=== PATIENT | female | born 1995 | race Caucasian/White ===

== ENCOUNTER → 2018-04-21 | Day surgery (SDC) | payer BC ==
[2018-04-20 13:00] VITALS: BMI 25.7
[~2018-04-21] MED LIST: Albuterol Sulfate HFA (OR ONLY) ONE; Dexamethasone 20 MG/5 ML VIAL ONE; Fentanyl 100 MCG/2 ML VIAL ONE; Ferric Subsulfate 8 ML BOT ONE; Hydrocodone-Acetamin 15 ML UDCUP ONE; Lidocaine 1% PF 5 ML VIAL ONE; Midazolam HCl 2 mg/2 ml Vial ONE; Morphine 2 MG/ML SYRINGE ONE; Ondansetron PF 4 MG/2 ML Vial ONE; PROPOFOL 20 ML ONE; PROPOFOL 200 MG/20 ML VIAL ONE; PROVENTIL INHALER 6.7 G (200 INHALATIONS) ONE
--- NOTE | 2018-04-21 14:29 | OP ---
PREOPERATIVE DIAGNOSES: Chronic tonsillitis, recurrent tonsillitis. POSTOPERATIVE DIAGNOSES: Chronic tonsillitis, recurrent tonsillitis. PROCEDURE PERFORMED: Tonsillectomy over 12 years of age. PROCEDURE IN DETAIL: After consent was obtained, the patient was identified, brought to the operatin g room, and placed on the operating table in the supine position. General endotracheal anesthesia an d intravenous access was obtained and we proceeded with positioning the patient for oropharyngeal oanh veronica. Oropharyngeal exposure was obtained with a Wilmer-Shane mouth gag. After a head drape was plac ed and secured with a towel clip. The Wilmer-Shane mouth gag was then suspended from the Crawford tray an d palatal elevation was achieved with a red rubber catheter. The right tonsil was addressed first. We used a curved Allis to grasp the tonsil and retract it medially as an anterior pillar incision was made with a #12 blade. The retrotonsillar fascial plane was then established and blunt dissection w as performed with the suction cautery. Blood vessels were anticipated, identified, and cauterized as they were encountered. Ultimately, dissection was carried to the posterior tonsillar pillar mucosa which was incised hemostatically, as well as the base of tongue connection. The tonsil was then pass ed off as a specimen and bleeding points within the tonsillar bed were cauterized under direct visual ization. We subsequently turned our attention to the contralateral side, where using a similar techn ique, a near identical procedure was performed. Again, the tonsil was grasped and retracted medially with a curved Allis as an anterior pillar incision was made with a #12 blade. The retrotonsillar fa scial plane was established and while the anterior pillar was retracted medially, the hemostatic blun t dissection of the tonsil with a suction cautery was performed with blood vessels anticipated, ident ified, and cauterized as they were encountered. Again, dissection continued to the base of tongue an d posterior tonsillar pillar mucosa which was incised in a hemostatic fashion. The tonsillar beds we re then carefully inspected and bleeding points were identified and cauterized with a suction cautery . After this portion of the procedure, hemostasis was completely obtained. The patient's oral cavit y was copiously irrigated with iced saline and subsequently suctioned. We then used the red rubber c atheter to suction the gastric contents and the patient was subsequently aroused, awakened, and extub ated without difficulty and transported to the recovery room in stable condition. There were no comp lications.
== END ==
LOC: SDC 07:24
PROVIDERS: ATTEND Specialist
PROC: 0CTPXZZ Resection of Tonsils, External Approach (ICD-10-PCS; principal; 2018-04-21)
DX: J35.01 Chronic tonsillitis (principal); J03.91 Acute recurrent tonsillitis, unspecified
CPT/HCPCS: 85014; 88304; 96374; 96375; J1100; J2001; J2250; J2270; J2405; J2704; J3010; J7620

== ENCOUNTER 2019-05-16 18:30 | Inpatient (IN) | payer BC ==
[~2019-05-16 18:30] MED LIST changes: -Albuterol Sulfate HFA (OR ONLY) ONE; +Bupivacaine 0.5% 10 ML VIAL ONE; -Dexamethasone 20 MG/5 ML VIAL ONE; -Fentanyl 100 MCG/2 ML VIAL ONE; -Ferric Subsulfate 8 ML BOT ONE; -Hydrocodone-Acetamin 15 ML UDCUP ONE; -Lidocaine 1% PF 5 ML VIAL ONE; -Midazolam HCl 2 mg/2 ml Vial ONE; -Morphine 2 MG/ML SYRINGE ONE; -Ondansetron PF 4 MG/2 ML Vial ONE; -PROPOFOL 20 ML ONE; -PROPOFOL 200 MG/20 ML VIAL ONE; -PROVENTIL INHALER 6.7 G (200 INHALATIONS) ONE
[2019-05-16] MEDS ORDERED: Lidocaine 1% (PF) 30 ML VIAL SC PRN (18:54)
[2019-05-16] MEDS ORDERED: Butorphanol Tartrate 1 MG/ML VIAL SLOW IVP PRN (18:54)
[2019-05-16] MEDS ORDERED: Ondansetron PF 4 MG/2 ML Vial IVP PRN (18:54)
[2019-05-16] MEDS ORDERED: NS / Oxytocin 40 units/1000ml 1,000 ML IV PRN (18:54)
[2019-05-16] MEDS ORDERED: Ibuprofen 800 MG TAB PO PRN (18:54)
[2019-05-16] MEDS ORDERED: HYDROcodone/Acetaminophen 5/325 mg Tablet PO PRN ×2 (18:54)
[2019-05-16] MEDS ORDERED: Docusate 100 MG CAP PO PRN (18:54)
[2019-05-16] MEDS ORDERED: hydrALAZINE 20 MG/ML VIAL SLOW IVP PRN (18:54)
[2019-05-16] MEDS ORDERED: Diphenoxylate HCl/Atropine Tablet PO PRN ×2 (18:54)
[2019-05-16] MEDS ORDERED: Zolpidem Tartrate 5 MG TAB PO PRN (18:54)
[2019-05-16] MEDS ORDERED: Misoprostol 200 MCG TAB PR PRN (18:54)
[2019-05-16] MEDS ORDERED: Methylergonovine 0.2 MG/ML VIAL IM PRN (18:54)
[2019-05-16] MEDS ORDERED: Promethazine HCl 25 MG/ML VIAL IM PRN (18:54)
[2019-05-16] MEDS ORDERED: Carboprost 250 MCG/ML AMP IM PRN (18:54)
--- NOTE | 2019-05-16 19:01 | PDOC.LDHP ---
Labor and Delivery H&P HPI: 24 y/o at 39 and 1/7 weeks for term induction of labor. Current gestational age (weeks): 39 Due date: 05/22/19 Grav: 3 Para: 0 Current complications: none Abnormal US findings: No Current medications: pre-raulito vitamins Allergies/Adverse Reactions: Allergies Allergy/AdvReac Type Severity Reaction Status Date / Time No Known Allergies Allergy Verified 04/20/18 12:58 Social history: none - Physical Exam Vital signs reviewed and normal: yes General: NAD, resting Heart: RRR Lungs: CTAB Abdomen: gravid Extremeties: no edema FHT: category 1 - Assessment L&D Assessment: elective induction at term - Plan Plan: admit to L&D, cervical ripening
[2019-05-16] MEDS: Lactated Ringer's 1,000 ML IV SCH (19:45)
[2019-05-16] MEDS ORDERED: NS w/ Oxytocin 10 units 500 ML IV SCH ×2 (20:00)
[2019-05-16] MEDS: Misoprostol 100 MCG TAB VAG SCH ×2 (20:14→23:56)
[2019-05-16 20:24] LABS: Hemoglobin 10.2 g/dL (12.0-16.0); Mean Corpuscular HGB CONC 33.8 g/dL (32.0-36.0); Mean Corpuscular Hemoglobin 28.5 pg (27.0-31.0); Mean Corpuscular Volume 84.4 fL (78.0-98.0); Platelet Count 164 thou/uL (130-400); RBC Distribution Width 12.4 % (11.5-14.5); Red Blood Cell (RBC) Count 3.57 mill/uL (4.20-5.40); White Blood Cell (WBC) Count 10.3 thou/uL (4.8-10.8)
[2019-05-16 21:08] LABS: Syphilis Antibody Nonreactive (Nonreactive); Syphilis Antibody Index 0.04 S/CO (<1.00 Non-Reactive)
[2019-05-16 22:28] VITALS: BMI 31.6
[2019-05-17 02:23] LABS: HBSAg Index 0.18 S/CO (0-0.99); Hep B Surf Ag Non-Reactive S/CO (NonReactive)
[2019-05-17] MEDS: Lactated Ringer's 1,000 ML IV SCH ×3 (04:00→12:23)
[2019-05-17] MEDS ORDERED: Fentanyl 4 mcg/Bup 0.1% Cadd 100 ML ONE ×2 (05:52→13:01)
[2019-05-17] MEDS ORDERED: Lactated Ringer's 500 ML IV PRN (06:27)
[2019-05-17] MEDS ORDERED: Naloxone HCl 0.4 mg/ml Vial IVP PRN ×2 (06:27)
[2019-05-17] MEDS ORDERED: Ondansetron PF 4 MG/2 ML Vial IVP PRN ×2 (06:27→18:00)
[2019-05-17] MEDS ORDERED: Promethazine HCl 25 MG/ML VIAL IM PRN ×2 (06:27→18:00)
[2019-05-17] MEDS ORDERED: Acetaminophen 325 MG TAB PO PRN (06:27)
[2019-05-17] MEDS ORDERED: ePHEDrine/0.9% NaCl/PF SYRINGE 50 mg/10 ml SLOW IVP PRN (06:27)
[2019-05-17] MEDS ORDERED: diphenhydrAMINE 50 MG/ML VIAL IVP PRN (06:27)
[2019-05-17] MEDS: Misoprostol 100 MCG TAB VAG SCH ×3 (06:29→18:14)
[2019-05-17] MEDS ORDERED: Fentanyl 4 mcg/Bupivacaine 0.1% Cassette 100 ML EPIDURAL SCH (06:30)
[2019-05-17] MEDS ORDERED: Communication Order-Pharmacy FS SCH (06:30)
[2019-05-17] MEDS ORDERED: Milk Of Magnesia 30 ML UDCUP PO PRN (18:00)
[2019-05-17] MEDS ORDERED: Methylergonovine 0.2 MG/ML VIAL IM PRN (18:00)
[2019-05-17] MEDS ORDERED: diphenhydrAMINE 25 MG CAP PO PRN (18:00)
[2019-05-17] MEDS ORDERED: Lanolin Ointment 7 GM TUBE TOP PRN (18:00)
[2019-05-17] MEDS ORDERED: Preparation H Ointment 28 GM TUBE PR PRN (18:00)
[2019-05-17] MEDS ORDERED: NS / Oxytocin 40 units/1000ml 1,000 ML IV SCH (18:00)
[2019-05-17] MEDS ORDERED: Bisacodyl 10 MG SUPP PR PRN (18:00)
[2019-05-17] MEDS ORDERED: HYDROcodone/Acetaminophen 5/325 mg Tablet PO PRN ×2 (18:00)
[2019-05-17] MEDS ORDERED: Benzocaine-Menthol 82.5 ML CAN TOP PRN (18:00)
[2019-05-17] MEDS ORDERED: Acetaminophen/Codeine 30-300mg Tablet PO PRN ×2 (18:00)
[2019-05-17] MEDS ORDERED: hydrALAZINE 20 MG/ML VIAL SLOW IVP PRN (18:00)
[2019-05-17] MEDS ORDERED: Zolpidem Tartrate 5 MG TAB PO PRN (18:00)
[2019-05-17] MEDS: Ibuprofen 800 MG TAB PO SCH (22:44)
[2019-05-17] MEDS: Docusate Calcium (SURFAK) 240 MG CAP PO SCH (22:45)
[2019-05-18 04:59] LABS: Hemoglobin 8.8 g/dL (12.0-16.0); Mean Corpuscular HGB CONC 33.2 g/dL (32.0-36.0); Mean Corpuscular Hemoglobin 28.6 pg (27.0-31.0); Mean Corpuscular Volume 86.1 fL (78.0-98.0); Mean Platelet Volume 9.8 fL (7.4-10.4); Platelet Count 137 thou/uL (130-400); RBC Distribution Width 12.5 % (11.5-14.5); Red Blood Cell (RBC) Count 3.06 mill/uL (4.20-5.40); White Blood Cell (WBC) Count 16.4 thou/uL (4.8-10.8)
--- NOTE | 2019-05-18 05:48 | PDOC.PP ---
Post Progress Note Post Day #: 1. Subjective: Feels fine and requesting to go home today if possible PO intake tolerated: yes Flatus: yes Ambulation: yes Vital Signs (12 hours) Temp Pulse Resp BP Pulse Ox 05/17/19 20:00 100 05/17/19 18:19 99 05/17/19 17:50 97.9 F 53 L 16 153/71 H 97 Weight Weight 184 lb One isolated systolic of 150 noted - Physical Examination General: NAD Cardiovascular: no m/r/g Abdominal: lochia, no distention, appropriately TTP Extremities: negative homans (B) Neurological: no gross focal deficits Psychiatric: A&Ox3, normal affect Result Diagrams: 05/18/19 04:18 Additional Labs: Post Labs Blood Type O POSITIVE 05/16/19 20:07 Hep Bs Antigen Non-Reactive S/CO (NonReactive) 05/16/19 20:07 (1) Vaginal delivery Code(s): O80 - ENCOUNTER FOR FULL-TERM UNCOMPLICATED DELIVERY Status: Acute - Assessment/Plan PPD1 with on 05/17....noted QBL of 750ml. Hct 26 from 30. Patient requesting DC to home today if possible. I discussed poss DC to home at 24 hrs (1500), and we will await baby labs to see if possible. I will place the DC order and we can adjust if needed if baby not ready. Follow BPs today...if she does go home today will need BP check next Wednesday. Hct 26 from 30.
[2019-05-18] MEDS: Ibuprofen 800 MG TAB PO SCH ×2 (06:54→14:04)
[2019-05-18] MEDS ORDERED: Ferrous Sulfate 325 MG TAB PO SCH (08:00)
[2019-05-18] MEDS: Docusate Calcium (SURFAK) 240 MG CAP PO SCH (08:17)
[2019-05-18] MEDS ORDERED: Adacel (T-DAP) 0.5 ML SYRINGE IM ONE (09:00)
[2019-05-18] MEDS ORDERED: Varicella virus, LIVE 0.5 ML VIAL SC ONE (09:00)
[2019-05-18] MEDS ORDERED: Prenatal Vitamin 1 TAB PO SCH (09:00)
[2019-05-18 11:45] VITALS: BP 140/64; TEMP 98.9
[2019-05-18] MEDS ORDERED: Measles/Mumps/Rubella 10 MCG/0.5 ML VIAL SC ONE (18:00)
--- NOTE | 2019-05-20 01:38 | PQF ---
Sharon Tafoya HECTOR [id number] CLINICAL DOCUMENTATION CLARIFICATION FORM: POST DISCHARGE Addendum to original discharge summary date: ____ Late entry note date: __ DATE: 05/20/19 ATTN: Westley Kelley Please exercise your independent, professional judgment in responding to the clarification form. Clinical indicators are provided on the bottom of this form for your review Please check appropriate box(s): [x ] Acute blood loss anemia [ ] Post-op anemia related to acute blood loss [ ] Chronic Anemia: [ ] Blood loss [ ] Hemolytic [ ] Simple [ ] Due to Vitamin B12 Deficiency [ x] Other anemia s/p delivery [ ] Other diagnosis [ ] Unable to determine In addition, please specify: Present on Admission (POA): [ ] Yes [ ] No [ ] Unable to determine For continuity of documentation, please document condition throughout progress notes and discharge summary. Thank You. CLINICAL INDICATORS - SIGNS / SYMPTOMS / LABS PN p1 05/18 Dr Hernandez PPD1 with on 05/17 noted QBL 750ml, Hct 26 from 30 Laboratory Hematology 05/16 Hgb 10.2, Hct 30.1 Laboratory Hematology 05/18 Hgb 8.8, Hct 26.4 RISK FACTORS PN p1 05/18 -s/p PN p1 05/18 - QBL 750ml TREATMENTS: AUG 29 Ferrous Sulfate 325 mg BID if hemoglobin 05/18 Laboratory Hematology Monitoring (This form is maintained as a part of the permanent medical record) 2014 [employer]. All Rights Reserved [email or web address] [not provided] [email or web address]
== END 2019-05-18 16:50 | disposition home or self-care (01) | DRG 806 ==
LOC: L&D 18:30 → 3SW 05-17 18:10
PROVIDERS: ADMIT Obstetrics & Gynecology; ATTEND Obstetrics & Gynecology
PROC: 3E0P7VZ Introduction of Hormone into Female Reproductive, Via Natural or Artificial Opening (ICD-10-PCS; 2019-05-16)
PROC: 10E0XZZ Delivery of Products of Conception, External Approach (ICD-10-PCS; principal; 2019-05-17)
DX: O99.02 Anemia complicating childbirth (principal); D62 Acute posthemorrhagic anemia; Z37.0 Single live birth; Z3A.39 39 weeks gestation of pregnancy
CPT/HCPCS: 36415; 51702; 85027; 86780; 86850; 86900; 86901; 87340; J2405; J2590